=== PATIENT | female | born 1995 | race Caucasian/White ===

== ENCOUNTER 2019-08-19 15:36 | Emergency (ER) | payer OTHER ==
[~2019-08-19] VITALS: Ht 165.1 cm; Wt 106.8 kg
[2019-08-19 15:49] VITALS: Ht 165.1 cm; Wt 106.8 kg
[2019-08-19 16:20] LABS: BASOPHILS 0.1 % (0-2); EOSINOPHILS 0.8 % (0-7); HEMATOCRIT 39.3 % (36.0-48.0); HEMOGLOBIN 12.6 g/dL (12-16); IMMATURE GRANULOCYTES 0.2 % (0-5); LYMPHOCYTES 14.2 % (15-50); MCH 27.9 pg (26.0-34.0); MCHC 32.1 g/dL (31.0-37.0); MCV 87.1 fL (80.0-100.0); MEAN PLATELET VOLUME 9.5 fL (7.4-10.4); MONOCYTES 5.7 % (2-11); PLATELET COUNT 432 10x3/uL (130-400); RBC 4.51 10x6/uL (4.00-5.40); WBC 15.7 10x3/uL (4.8-10.8)
[2019-08-19 16:33] LABS: ANION GAP 14.2 mmol/L (8-16); CALCIUM 9.1 mg/dL (8.5-10.1); CARBON DIOXIDE 24.4 mmol/L (21.0-32.0); POTASSIUM - SERUM 3.6 mmol/L (3.5-5.1)
[2019-08-19 16:38] LABS: HCG SERUM NEGATIVE (NEGATIVE)
[2019-08-19 16:39] LABS: ALBUMIN 3.8 g/dL (3.4-5.0); BILIRUBIN - TOTAL 0.49 mg/dL (0.2-1.3); PROTEIN - SERUM 7.9 g/dL (6.4-8.2)
[2019-08-19] MEDS ORDERED: DOXYCYCLINE HY100 M2 PO (18:46)
[2019-08-19] MEDS ORDERED: ZOFRAN ODT4 MG/UDTAB PO (18:51)
[2019-08-19] MEDS ORDERED: HYDROCODON-ACE1 EAC7 PO (18:51)
[2019-08-19 19:44] LABS: BILIRUBIN NEGATIVE (NEGATIVE); GLUCOSE NEGATIVE (NEGATIVE); KETONE NEGATIVE (NEGATIVE); NITRITE NEGATIVE (NEGATIVE); UROBILINOGEN NORMAL (NORMAL)
[2019-08-19 20:17] VITALS: BP 126/90
== END 2019-08-19 20:19 | disposition home or self-care (01) ==
LOC: EDBD 15:36 → D.ER 15:36
PROVIDERS: Family Medicine
DX: N83.202 Unspecified ovarian cyst, left side (principal); R10.9 Unspecified abdominal pain; D72.829 Elevated white blood cell count, unspecified; N73.9 Female pelvic inflammatory disease, unspecified; Z20.2 Contact with and (suspected) exposure to infections with a predominantly sexual mode of transmission; R10.2 Pelvic and perineal pain; M25.562 Pain in left knee; R11.0 Nausea

== ENCOUNTER 2019-09-02 15:40 | Emergency (ER) | payer OTHER ==
[~2019-09-02] VITALS: Ht 165.1 cm; Wt 106.8 kg
[~2019-09-02 15:40] MED LIST: DOXYCYCLINE HY100 M2 PO; HYDROCODON-ACE1 EAC7 PO; ZOFRAN ODT4 MG/UDTAB PO
[2019-09-02 16:02] VITALS: BP 128/79; Ht 165.1 cm; Wt 106.8 kg
== END 2019-09-02 17:00 | disposition home or self-care (01) ==
LOC: D.ER 15:40
DX: M25.531 Pain in right wrist (principal); M25.562 Pain in left knee; M25.561 Pain in right knee; W22.8XXA Striking against or struck by other objects, initial encounter; Y93.9 Activity, unspecified; Y92.9 Unspecified place or not applicable

== ENCOUNTER → 2019-10-21 13:22 | Outpatient (CLI) | payer OTHER ==
[2019-09-02 16:02] VITALS: BMI 39.1
== END | disposition home or self-care (01) ==
LOC: D.MRI 13:00
PROVIDERS: ATTEND Orthopaedic Surgery
DX: S83.92XA Sprain of unspecified site of left knee, initial encounter (principal)

== ENCOUNTER 2019-11-25 18:32 | Emergency (ER) | payer OTHER ==
[~2019-11-25] VITALS: Ht 165.1 cm; Wt 104.5 kg
[2019-11-25 18:56] VITALS: Ht 165.1 cm; Wt 104.5 kg
[2019-11-25] MEDS ORDERED: AUGMENTIN 875-11 TAB PO (20:02)
[2019-11-25] MEDS ORDERED: MEDROL DOSE PACK4 MG PO (20:02)
[2019-11-25] MEDS ORDERED: BROMFED-DM COU473 ML PO (20:02)
[2019-11-25] MEDS ORDERED: VENTOLIN HFA [SP8 GM INH (20:04)
[2019-11-26 01:13] VITALS: BP 126/81
== END 2019-11-26 01:14 | disposition home or self-care (01) ==
LOC: D.ER 18:32
DX: J32.9 Chronic sinusitis, unspecified (principal); J40 Bronchitis, not specified as acute or chronic; Z20.828 Contact with and (suspected) exposure to other viral communicable diseases; Z72.0 Tobacco use